=== PATIENT | female | born 1970 | race Caucasian/White ===

== ENCOUNTER → 2017-04-04 | Outpatient (CLI) | payer OTHER ==
[~2017-04-04] MED LIST: KEFLEX500 M1 PO
--- NOTE | 2017-04-10 11:15 | RADIOLOGY REPORT PS360 ---
DIG MAMM-SCREEN SUSHANT W/CAD CAD Screening ORDERING PHYSICIAN : Shane Leone MD PATIENT AGE: 46 years GENDER: Female COMPARISON: Previous mammograms: November 2011, January 2016, 2014,.. November 2012 INDICATION: Routine screening no hormones. No new complaints. Implanon in arm 2.5 year . Family history. Noncontributory TECHNIQUE: Standard CC and MLO images were obtained. R2 CAD reviewed. FINDINGS: Mild/moderate scattered fibroglandular elements most evident at the superior breast. Moderate breast density in these regions. Prior films are helpful in supporting stable appearance to the superior left & right breast. With no significant new areas of concern either breast. RIGHT BREAST: No significant new findings follow up one year LEFT BREAST: Specifically note the stable glandular density superior left breast which is similar to 2013 & in 2010 mammogram with no significant change IMPRESSION: Stable bilateral mammogram with no new areas of concern Stable moderately dense fibroglandular elements superior left> right breast again noted with no significant change. Follow up one year BI-RADS CATEGORY: 2_Benign RECOMMENDED FOLLOWUP: 12M 12 MONTH FOLLOW-UP (A letter has been sent to the patient regarding results of the study.)
== END ==
LOC: RAD 16:20
DX: Z12.31 Encounter for screening mammogram for malignant neoplasm of breast (principal); N95.1 Menopausal and female climacteric states
CPT/HCPCS: G0202